=== PATIENT | female | born 1940 | race Caucasian/White ===

== ENCOUNTER 2017-03-19 17:53 | Emergency (ER) | payer OTHER, MEDICAID ==
[~2017-03-19] VITALS: Ht 172.7 cm; Wt 68.0 kg
--- NOTE | 2017-03-19 18:22 | NUR ---
BBRA, ALERT AND ORIENTED W/ C/O EPISTAXIS X 45 MIN DIRECTOR OF STRATEGIC [employer]IANCES S/P ITCHING NOSE . NO ACTIVE BLEEDING AT THIS TIME. VSS RR EVEN AND UNLABORED. SEEN AND EVALUATED BY DR HILTON
[2017-03-19 18:48] VITALS: BP 145/77
--- NOTE | 2017-03-19 18:48 | NUR ---
PT. VERBALIZED UNDERSTANDING OF AFTERCARE INSTRUCTIONS.Patient discharged to home in stable condition. Written and verbal after care instructions given. Patient verbalizes understanding of instruction.
== END 2017-03-19 19:00 | disposition home or self-care (01) ==
LOC: ER 17:55
DX: R04.0 Epistaxis (principal); E03.9 Hypothyroidism, unspecified; Z88.2 Allergy status to sulfonamides; Z90.49 Acquired absence of other specified parts of digestive tract
CPT/HCPCS: 99283; A4606; Z7610